=== PATIENT | male | born 1965 | race African-American/Black ===

== ENCOUNTER → 2017-10-06 | Day surgery (SDC) | payer BC ==
[~2017-10-06] MED LIST: ALPR0.25 PO; AMLO5TAB2 PO; ATOR20TA58 PO; BUPR300T4 PO; CARV12.5 PO; CLOP75TA57 PO; DIVA500T9 PO; ISOS60TA2 PO; IV RINGERS,LACTATED 1000ML 1,000 ML IV SCH; LEVO88TA4 PO; LOSA100T6 PO; MECL25TA3 PO; PANT40TA5 PO; PROPOFOL 20 ML IV ONE
--- NOTE | 2017-10-06 08:26 | PDOC1 ---
HISTORY & PHYSICAL H&P Richar Morales Jr [id number] 1965 09/16/2017 03:00 PM 11/[address] [place] [facility], [facility] OUR PATIENTS COME FIRST [address] [place] [address] Ph. [phone] Patient: Richar Morales Jr Date of : 1965 Date: 09/16/2017 3:00 PM Visit Type: Consult This 51 year old male presents for Screening colonoscopy. History of Present Illness: 1. Screening colonoscopy No prior screening. Denies risk factors. Pertinent negatives include abdominal pain, change in bowel habits, change in stool caliber, constipation, decreased appetite, diarrhea, melena, nausea, rectal bleeding, vomiting, weight gain and weight loss. Additional information: No family history of colon cancer , No family history of Crohn's/colitis and No NSAID/ASA use. 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 Hypothyroidism 03/03/2014 PAST MEDICAL/SURGICAL HISTORY (Detailed) Disease/disorder Onset Date Management Date Comments AICD 2009 cardiomyopathy Congestive heart failure 2009 AICD placement Diabetes hernia surgery 2010 Hyperlipidemia Hypertension Sleep apnea 2008 CPAP mask Medications (Active): Started Medication Directions Instruction Stopped 08/17/2017 Aldactone 25 mg tablet TAKE 1 TABLET BY MOUTH DAILY 08/17/2017 Coreg 25 mg tablet TAKE 1 TABLET BY MOUTH 2 TIMES A DAY WITH FOOD 08/17/2017 Demadex 20 mg tablet take 1 tablet by oral route every day 08/17/2017 hydrochlorothiazide 25 mg tablet TAKE 1 TABLET BY MOUTH DAILY 08/17/2017 losartan 50 mg tablet take 1 tablet by oral route every day 08/17/2017 Synthroid 175 mcg tablet TAKE ONE TABLET BY MOUTH ONCE DAILY Allergies: Ingredient Reaction Medication Name Comment LISINOPRIL tongue tingling REVIEW OF SYSTEMS System Neg/Pos Details Constitutional Negative Chills, fever, malaise, weight gain and weight loss. ENMT Negative Sore throat. Eyes Negative Double vision. Respiratory Negative Dyspnea and wheezing. Cardio Negative Chest pain and irregular heartbeat/palpitations. GI Positive See HPI. GI Negative Abdominal pain, change in bowel habits, change in stool caliber, constipation, decreased appetite, diarrhea, melena, nausea, see HPI, rectal bleeding and vomiting. Negative Dysuria and hematuria. Endocrine Negative Cold intolerance and heat intolerance. Psych Negative Anxiety. Integumentary Negative Hives and rash. MS Negative Joint pain. Festus/Lymph Negative Easy bleeding and easy bruising. Allergic/Immuno Negative Food allergies. VITAL SIGNS Time BP mm/Hg Pulse /min Resp /min Temp F Ht ft Ht in Ht cm Wt lb Wt kg BMI kg/ m2 BSA m2 O2 Sat% 2:48 PM 158/110 78 98.1 5.0 9.00 175.26 324.40 147.145 47.90 98 Time Measured by 2:48 PM Shantel Merlos PHYSICAL EXAM: Exam Findings Details Constitutional Normal Well developed. Eyes Normal Conjunctiva - Right: Normal, Left: Normal. Sclera - Right: Normal, Left: Normal. Nasopharynx Normal Lips/teeth/gums - Normal. Neck Exam Normal Inspection - Normal. Thyroid gland - Normal. Respiratory Normal Inspection - Normal. Auscultation - Normal. Cardiovascular Normal Regular rate and rhythm. No murmurs, gallops, or rubs. Vascular Normal Pulses - Carotids: Normal, Femoral: Normal, Dorsalis pedis: Normal. Abdomen Normal Inspection - Normal. Anterior palpation - No guarding. No abdominal tenderness. No hepatic enlargement. No splenic enlargement. No hernia. No ascites. Skin Normal Inspection - Normal. Extremity Normal No edema. Psychiatric * Oriented to time, place, person and situation. Psychiatric Normal Appropriate mood and effect. Assessment/Plan # Detail Type Description 1. Assessment Encounter for screening colonoscopy (Z12.11). [place] [facility] [place] Further diagnostic evaluations ordered today include(s) Colonoscopy to be performed today. He is to schedule a follow-up visit with Zayda Encarnacion MD upon completion of work-up Electronically signed by: Zayda Encarnacion MD 09/16/2017 03:15 PM Document generated by: Zayda Encarnacion 09/16/2017 03:15 PM Mercy Christopher MD, Family Practice; Edwin Barnard MD Internal Medicine; Kera Vizcaino MD, Internal Medicine; Christopher Encarnacion MD Internal Medicine; Zayda Encarnacion MD, Gastroenterology; Keven Ingram MD, Rheumatology, S. Rick Reeves, Physical Medicine/[facility] MORGAN ------ 10/06/17 Patient seen and examined. No change in H&P. ZAYDA ENCARNACION MD Oct 06, 2017 08:26
[2017-10-06 09:18] VITALS: BP 134/71
== END | disposition home or self-care (01) ==
LOC: SURG 07:27
PROVIDERS: ATTEND Internal Medicine Gastroenterology
DX: Z12.11 Encounter for screening for malignant neoplasm of colon (principal); E78.00 Pure hypercholesterolemia, unspecified; I10 Essential (primary) hypertension; E11.9 Type 2 diabetes mellitus without complications; E03.9 Hypothyroidism, unspecified; I11.0 Hypertensive heart disease with heart failure; I50.9 Heart failure, unspecified; Z86.39 Personal history of other endocrine, nutritional and metabolic disease; Z91.018 Allergy to other foods
CPT/HCPCS: 45378; J2704

== ENCOUNTER 2019-09-04 10:55 | Emergency (ER) | payer SELFPAY ==
[~2019-09-04] VITALS: Ht 180.3 cm; Wt 140.6 kg
[~2019-09-04 10:55] MED LIST changes: +AMLO5TAB10 PO; -AMLO5TAB2 PO; +DIVA-53 PO; -DIVA500T9 PO; -IV RINGERS,LACTATED 1000ML 1,000 ML IV SCH; +LOSA100T14 PO; -LOSA100T6 PO; -PANT40TA5 PO; +PANT40TA77 PO; -PROPOFOL 20 ML IV ONE
[2019-09-04 11:10] VITALS: BP 138/83
[2019-09-04] MEDS ORDERED: DIPHTH,PERTUSS(ACELL),TET TOX 0.5 ML DISP.SYRIN. VAX IM ONE (12:00)
[2019-09-04] MEDS ORDERED: NEOMY/BACITR/POLYMYXIN OINT PACKET. TP ONE (12:00)
[2019-09-04] MEDS ORDERED: LIDOCAINE 1%/EPI 1:100,000 20 ML VIAL. SQ ONE (12:00)
--- NOTE | 2019-09-04 13:37 | PHYS DOC ---
Past Medical History Past Medical History: CHF, Diabetes-Type II Alcohol Use: None Drug Use: None Adult General Chief Complaint Chief Complaint: LACERATION/AVULSION [facility] Patient is a 53 year old AA male who presents to the emergency room with complaints of a laceration to his left elbow. Patient states that he hit his elbow on a piece of tile while in the shower today. He denies any decreased range of motion, numbness, tingling, weakness, or pain at this time. The patient is unsure when his last tetanus shot was. He currently he rates his pain a 0 out of 10 on the pain scale. All other ROS is negative unless otherwise documented in HPI. Review of Systems Review of Systems See Above Current Medications Current Medications Current Medications Medications (Trade) Dose Ordered Sig/Jonah Start Time Stop Time Status Last Admin Dose Admin Diphtheria/ Tetanus/Acell Pertussis (Boostrix) 0.5 ml ONCE ONCE 09/04/19 12:00 09/04/19 12:01 DC 09/04/19 12:08 0.5 ML Lidocaine/ Epinephrine (LIDOCAINE 1%-EPI 1:100,000 Multi-Dose) 20 ml 1X ONCE 09/04/19 12:00 09/04/19 12:01 DC 09/04/19 12:05 20 ML Neomycin/ Polymyxin/ Bacitracin (Triple Antibiotic Ointment) 1 pkt 1X ONCE 09/04/19 12:00 09/04/19 12:01 DC 09/04/19 12:05 1 PKT Allergies Allergies Allergies Coded Allergies Type Severity Reaction Last Updated Verified walnut Allergy Intermediate Hives 10/06/17 Yes Physical Exam Physical Exam See Above Constitutional: Well developed, well nourished, no acute distress, non-toxic appearance, obese. [] HENT: Normocephalic, atraumatic, bilateral external ears normal, nose normal. [] Eyes: PERRLA, EOMI, conjunctiva normal, no discharge. [] Neck: Normal range of motion, no stridor. [] Cardiovascular:Heart rate regular rhythm Lungs & Thorax: respirations even and unlabored, no retractions, no distress] Skin: Warm, dry, no erythema, no rash; 2 cm laceration noted to the left lateral elbow, bleeding controlled with bandage in place [] Extremities: L elbow: No bony tenderness, no cyanosis, no clubbing, ROM intact, no edema. [] Neurologic: Alert and oriented X 3, normal motor function, normal sensory functi on, no focal deficits noted. [] Psychologic: Affect normal, judgement normal, mood normal. [] Current Patient Data Vital Signs Vital Signs Date Time Temp Pulse Resp B/P (MAP) Pulse Ox O2 Delivery O2 Flow Rate FiO2 09/04/19 11:10 98.2 97 15 138/83 (101) 98 Room Air 98.2 EKG EKG [] Radiology/Procedures Radiology/Procedures Laceration Repair by me: Anesthesia: 1% lidocaine locally Location: left elbow Tendon/Joint/Nerves: No injury Foreign body: None detected after copious irrigation and exploration Technique: 4 Simple Interrupted Sutures with 4-0 ethilon Complexity: No subcutaneous sutures/mucosal repair/edge excision Post Closure Length: 2 cm Patient's bleeding was easily controlled in the department and there is no indication of anemia. No evidence of compartment syndrome, neurologic injury, vascular injury, open joint, tendon laceration, or foreign body. Patient is appropriate for outpatient follow up. Course & Med Decision Making Course & Med Decision Making Pertinent Labs and Imaging studies reviewed. (See chart for details) Patient is a 53-year-old male who presents to the emergency room with complaints of left elbow laceration. The laceration was repaired as documented above and the patient's tetanus was updated while in the department. Patient was instructed to keep the area clean and dry, take Tylenol or ibuprofen as needed for pain. Leave the dressing that was placed today on for 24 hours then change the dressing twice a day and apply antibiotic ointment to the area. Follow-up with your primary care doctor, or return to the emergency room in 14 days to have the sutures removed, sooner if you develop signs of infection including: redness, warmth, drainage, or a fever. Pt verbalized an understanding of discharge, medications, follow-up, home care, and return to ED precautions, was in agreement with POC. Meggan Disclaimer Meggan Disclaimer This electronic medical record was generated, in whole or in part, using a voice recognition dictation system. Departure Departure Impression: Primary Impression: Laceration of left elbow without complication Additional Impression: Need for DTaP vaccination Disposition: HOME, SELF-CARE Condition: STABLE Referrals: KAMRAN ALEXANDER MD (PCP) Patient Instructions: Laceration Care, Adult, Tfss-[id number] Additional Instructions: Keep the area clean and dry. You may take Tylenol or ibuprofen as needed for pain. Keep the dressing that was placed today on for 24 hours then change the dressing twice a day and apply antibiotic ointment to the area. Follow-up with your primary care doctor, or return to the emergency room in 14 days to have the sutures removed, sooner if you develop signs of infection including: redness, warmth, drainage, or a fever. Problem Qualifiers Primary Impression: Laceration of left elbow without complication Encounter type: initial encounter Qualified Codes: S51.012A - Laceration without foreign body of left elbow, initial encounter LYNSEY OROZCO [employer] Sep 04, 2019 13:37
== END 2019-09-04 13:45 | disposition home or self-care (01) ==
LOC: ER 10:55
DX: S51.012A Laceration without foreign body of left elbow, initial encounter (principal); E11.9 Type 2 diabetes mellitus without complications; I50.9 Heart failure, unspecified; Z91.018 Allergy to other foods; X58.XXXA Exposure to other specified factors, initial encounter; Y93.89 Activity, other specified; Y92.89 Other specified places as the place of occurrence of the external cause; Y99.8 Other external cause status
CPT/HCPCS: 12001; 90471; 90715; 99283; J3490

== ENCOUNTER → 2020-06-21 | Outpatient (CLI) | payer SELFPAY ==
[~2020-06-21] MED LIST changes: -BUPR300T4 PO; +BUPR300T92 PO; +MECL-75 PO; -MECL25TA3 PO
--- NOTE | 2020-06-21 16:55 | KCIC ---
PA and lateral chest radiographs 06/21/2020 CLINICAL HISTORY: History of pneumonia. Sputum productive cough. PA and lateral digital radiograph of the chest were obtained. Comparison study is dated 10/19/2009. A left-sided pacemaker is unchanged. The cardiac silhouette is mildly enlarged. The thoracic aorta is mildly tortuous. No acute pulmonary infiltrate is seen. No pleural effusion or pneumothorax is noted. Degenerative changes are seen involving the thoracic spine. IMPRESSION: No acute abnormality is seen. Electronically signed by: Kehinde García MD (06/21/2020 4:52 PM) [id number]
== END | disposition home or self-care (01) ==
LOC: KCIC 15:49
PROVIDERS: ATTEND Internal Medicine
DX: J18.9 Pneumonia, unspecified organism (principal); I51.7 Cardiomegaly; Q25.46 Tortuous aortic arch; M47.814 Spondylosis without myelopathy or radiculopathy, thoracic region; Z95.0 Presence of cardiac pacemaker
CPT/HCPCS: 71046